=== PATIENT | male | born 1930 | race Caucasian/White ===

== ENCOUNTER 2017-06-01 16:31 | Inpatient (IN) | payer OTHER ==
[~2017-06-01] VITALS: Ht 160 cm; Wt 59.0 kg
[2017-06-17] MEDS ORDERED: PEPCID20 MG PO (11:48)
[2017-06-17] MEDS ORDERED: METOCLOPRAMIDE H5 MG PO (11:48)
[2017-06-17] MEDS ORDERED: PRE PROTEIN 2030 ML NGT (11:48)
[2017-06-17] MEDS ORDERED: Intestinex CAP PO (11:48)
== END 2017-06-17 13:54 | disposition home or self-care (01) | DRG 178 ==
LOC: ER 16:31 → MEDI 22:14 → SEC-K 22:14 → MEDI 06-02 12:38
PROC: BW21ZZZ Computerized Tomography (CT Scan) of Abdomen and Pelvis (ICD-10-PCS; 2017-06-01)
PROC: 3E0336Z Introduction of Nutritional Substance into Peripheral Vein, Percutaneous Approach (ICD-10-PCS; 2017-06-01)
PROC: 4A033R1 Measurement of Arterial Saturation, Peripheral, Percutaneous Approach (ICD-10-PCS; 2017-06-02)
PROC: 02H633Z Insertion of Infusion Device into Right Atrium, Percutaneous Approach (ICD-10-PCS; 2017-06-03)
PROC: 0DH63UZ Insertion of Feeding Device into Stomach, Percutaneous Approach (ICD-10-PCS; principal; 2017-06-10)
DX: J69.0 Pneumonitis due to inhalation of food and vomit (principal); N39.0 Urinary tract infection, site not specified; E86.0 Dehydration; R13.19 Other dysphagia; E88.09 Other disorders of plasma-protein metabolism, not elsewhere classified; Z74.01 Bed confinement status; G30.8 Other Alzheimer's disease; F02.80 Dementia in other diseases classified elsewhere, unspecified severity, without behavioral disturbance, psychotic disturbance, mood disturbance, and anxiety; K29.00 Acute gastritis without bleeding; K59.09 Other constipation; K31.84 Gastroparesis

== ENCOUNTER 2017-11-18 02:45 | Inpatient (IN) | payer OTHER ==
[~2017-11-18] VITALS: Ht 167.6 cm; Wt 63.0 kg
[~2017-11-18 02:45] MED LIST: Intestinex CAP PO; METOCLOPRAMIDE H5 MG PO; PEPCID20 MG PO; PRE PROTEIN 2030 ML NGT
[2017-11-18] MEDS ORDERED: ASPIR-LOW81 MG (04:26)
[2017-11-18] MEDS ORDERED: PREVACID30 M1 (04:26)
[2017-11-18] MEDS ORDERED: INTESTINEX680 M1 (04:26)
[2017-11-18] MEDS ORDERED: VITAMIN D-32000 UNIT (04:27)
[2017-11-18] MEDS ORDERED: ACID REDUCER20 MG (04:27)
[2017-11-18] MEDS ORDERED: METOCLOPRAMIDE10 M1 (04:28)
[2017-11-18] MEDS ORDERED: MELATONIN10 MG (04:28)
[2017-11-28] MEDS ORDERED: ACID REDUCER20 MG PO (13:32)
[2017-11-28] MEDS ORDERED: INTESTINEX680 M1 PO (13:32)
== END 2017-11-28 16:11 | disposition home or self-care (01) | DRG 177 ==
LOC: ER 02:45 → MEDJ 10:31 → SEC-K 10:31 → MEDI 15:02 → MEDJ 15:02
PROC: 3E0F7GC Introduction of Other Therapeutic Substance into Respiratory Tract, Via Natural or Artificial Opening (ICD-10-PCS; principal; 2017-11-18)
PROC: 4A033R1 Measurement of Arterial Saturation, Peripheral, Percutaneous Approach (ICD-10-PCS; 2017-11-18)
PROC: B246ZZZ Ultrasonography of Right and Left Heart (ICD-10-PCS; 2017-11-18)
PROC: 4A12X4Z Monitoring of Cardiac Electrical Activity, External Approach (ICD-10-PCS; 2017-11-18)
DX: J69.0 Pneumonitis due to inhalation of food and vomit (principal); A41.1 Sepsis due to other specified staphylococcus; R65.20 Severe sepsis without septic shock; N17.8 Other acute kidney failure; N39.0 Urinary tract infection, site not specified; E87.0 Hyperosmolality and hypernatremia; E27.49 Other adrenocortical insufficiency; Z74.01 Bed confinement status; G30.8 Other Alzheimer's disease; F02.80 Dementia in other diseases classified elsewhere, unspecified severity, without behavioral disturbance, psychotic disturbance, mood disturbance, and anxiety; R13.19 Other dysphagia; Z93.1 Gastrostomy status; E86.0 Dehydration; K31.84 Gastroparesis; E88.09 Other disorders of plasma-protein metabolism, not elsewhere classified; B96.4 Proteus (mirabilis) (morganii) as the cause of diseases classified elsewhere; Z66 Do not resuscitate; K29.60 Other gastritis without bleeding; K59.09 Other constipation

== ENCOUNTER 2018-04-24 15:47 | Inpatient (IN) | payer OTHER ==
[~2018-04-24] VITALS: Ht 160 cm; Wt 54.4 kg
[~2018-04-24 15:47] MED LIST changes: +ACID REDUCER20 MG; +ACID REDUCER20 MG PO; +ASPIR-LOW81 MG; +INTESTINEX680 M1; +INTESTINEX680 M1 PO; +MELATONIN10 MG; +METOCLOPRAMIDE10 M1; +PREVACID30 M1; +VITAMIN D-32000 UNIT
[2018-04-24] MEDS ORDERED: SIMVASTATIN40 MG (15:59)
[2018-04-24] MEDS ORDERED: [UNRECOGNIZED DRUG - CODE] (15:59)
[2018-04-24] MEDS ORDERED: OMEPRAZOLE20 M1 (16:00)
[2018-05-18] MEDS ORDERED: VITAMIN D-32000 UNIT GT (15:28)
[2018-05-18] MEDS ORDERED: LINEZOLID600 MG/300 IV (15:28)
[2018-05-18] MEDS ORDERED: MERREM500 MG IV (15:28)
[2018-05-18] MEDS ORDERED: ACID REDUCER20 MG PO (15:28)
[2018-05-18] MEDS ORDERED: SIMVASTATIN40 MG PO (15:28)
[2018-05-18] MEDS ORDERED: INTESTINEX680 M1 PO (15:28)
[2018-05-18] MEDS ORDERED: ALBUTEROL2.5 MG/3 M IH (15:28)
== END 2018-05-18 21:18 | disposition home health service (06) | DRG 539 ==
LOC: ER 15:47 → MEDI 04-25 14:10 → EDBD 04-25 14:10 → SEC-K 04-25 14:10 → MEDJ 04-25 18:51 → MEDI 04-25 19:16
PROC: 3E0336Z Introduction of Nutritional Substance into Peripheral Vein, Percutaneous Approach (ICD-10-PCS; 2018-04-25)
PROC: 0DH63UZ Insertion of Feeding Device into Stomach, Percutaneous Approach (ICD-10-PCS; principal; 2018-04-27)
PROC: 02HV33Z Insertion of Infusion Device into Superior Vena Cava, Percutaneous Approach (ICD-10-PCS; 2018-04-28)
PROC: CP1Z1ZZ Planar Nuclear Medicine Imaging of Musculoskeletal System, All using Technetium 99m (Tc-99m) (ICD-10-PCS; 2018-05-02)
PROC: 3E0F7GC Introduction of Other Therapeutic Substance into Respiratory Tract, Via Natural or Artificial Opening (ICD-10-PCS; 2018-05-07)
PROC: 4A033R1 Measurement of Arterial Saturation, Peripheral, Percutaneous Approach (ICD-10-PCS; 2018-05-10)
PROC: BB24ZZZ Computerized Tomography (CT Scan) of Bilateral Lungs (ICD-10-PCS; 2018-05-10)
DX: M86.152 Other acute osteomyelitis, left femur (principal); L89.224 Pressure ulcer of left hip, stage 4; A41.9 Sepsis, unspecified organism; J69.0 Pneumonitis due to inhalation of food and vomit; K94.23 Gastrostomy malfunction; E27.49 Other adrenocortical insufficiency; K94.22 Gastrostomy infection; L98.498 Non-pressure chronic ulcer of skin of other sites with other specified severity; R04.2 Hemoptysis; B37.0 Candidal stomatitis; E87.0 Hyperosmolality and hypernatremia; E86.0 Dehydration; G30.1 Alzheimer's disease with late onset; F02.80 Dementia in other diseases classified elsewhere, unspecified severity, without behavioral disturbance, psychotic disturbance, mood disturbance, and anxiety; Z74.01 Bed confinement status; R13.19 Other dysphagia; E88.09 Other disorders of plasma-protein metabolism, not elsewhere classified; B37.2 Candidiasis of skin and nail; B96.29 Other Escherichia coli [E. coli] as the cause of diseases classified elsewhere; Z16.12 Extended spectrum beta lactamase (ESBL) resistance; Z66 Do not resuscitate; K31.84 Gastroparesis; B96.4 Proteus (mirabilis) (morganii) as the cause of diseases classified elsewhere; B95.2 Enterococcus as the cause of diseases classified elsewhere; B96.6 Bacteroides fragilis [B. fragilis] as the cause of diseases classified elsewhere; B96.89 Other specified bacterial agents as the cause of diseases classified elsewhere; R09.02 Hypoxemia; B96.5 Pseudomonas (aeruginosa) (mallei) (pseudomallei) as the cause of diseases classified elsewhere; Z78.1 Physical restraint status